=== PATIENT | female | born 1985 | race Caucasian/White ===

== ENCOUNTER 2017-01-23 10:51 | Emergency (ER) | payer BC ==
[~2017-01-23] VITALS: Ht 165.1 cm; Wt 53.0 kg
[~2017-01-23 10:51] MED LIST: ONDA4; OXYC1SOL5 PO; PREN0.01 PO
[2017-01-23 10:57] VITALS: BP 111/78; PULSE 91; RESP 16; TEMP 98.2; O2SAT 99
[2017-01-23] MEDS ORDERED: SODIUM CHLOR 0.9% 1000 ML INJ 1,000 ML IV ONE (11:11)
[2017-01-23] MEDS ORDERED: SODIUM CHLORIDE 0.9% FLUSH 10 ML FLUSH IVF PRN (11:15)
[2017-01-23] MEDS ORDERED: ONDANSETRON HCL 4 MG/2 ML VIAL IVP ONE (11:15)
[2017-01-23] MEDS ORDERED: IBUP-232 PO (11:20)
[2017-01-23] MEDS ORDERED: HYDR-3534 PO (11:20)
[2017-01-23] MEDS ORDERED: AUGM500T7 PO (11:20)
--- NOTE | 2017-01-23 11:22 | PD ---
HPI . Persistent vomiting Chief Complaint: GI Complaint Time Seen by Provider: 11:11 Travel History International Travel<30 days: No Contact w/Intl Traveler<30days: No Traveled to known affect area: No History of Present Illness HPI This patient presents with a chief complaint of vomiting. Onset was following a dental procedure yesterday. No diarrhea. No fever. No abdominal pain. Symptoms are severe. PFSH Past Medical History Arthritis: No Asthma: No Autoimmune Disease: No Blood Disorders: No Anxiety: Yes Depression: No Heart Rhythm Problems: No Cancer: No Cardiovascular Problems: No High Cholesterol: No Chemotherapy: No Chest Pain: No Congestive Heart Failure: No COPD: No Cerebrovascular Accident: No Diabetes: No Diminished Hearing: No Endocrine: No GERD: No Glaucoma: No Genitourinary: No Headaches: No Hepatitis: No Hiatal Hernia: No Hypertension: No Immune Disorder: No Kidney Stones: No Musculoskeletal: No Neurologic: Yes (MIGRAINES) Psychiatric: Yes Reproductive: Yes (Ovarian Cysts) Respiratory: No Migraines: Yes Myocardial Infarction: No Radiation Therapy: No Renal Failure: No Seizures: No Sickle Cell Disease: No Sleep Apnea: No Thyroid Disease: No Ulcer: No Influenza Vaccination: No PNEUMOCCOCAL Vaccine (Year): 2 ?: Not LMP: 01/22/2017 : 2 Para: 2 Miscarriage: 0 : 0 Ovarian Cysts: Yes Past Surgical History Abdominal Surgery: No AICD: No Appendectomy: No Arteriovenous Shunt: No Cardiac Surgery: No Cholecystectomy: No Ear Surgery: No Endocrine Surgery: No Eye Surgery: No Genitourinary Surgery: No Gynecologic Surgery: No Insulin Pump: No Joint Replacement: No Oral Surgery: No Pacemaker: No Thoracic Surgery: No Tonsillectomy: Yes Social History Alcohol Use: Yes Tobacco Use: No Substance Use: No Allergies-Medications (Allergen,Severity, Reaction): Coded Allergies: No Known Allergies (Verified , 01/23/17) Reported Meds & Prescriptions Reported Meds & Active Scripts Active Reported Ibuprofen 600 Mg Tab 600 Mg PO QID Augmentin (Amoxicillin-Clavulanate) 500-125 mg Tab 500 Mg PO BID Lortab (Hydrocodone-Acetaminophen) 7.5-325 Mg Tab 1 Tab PO Q4H PRN Review of Systems Except as stated in HPI: all other systems reviewed are Neg General / Constitutional: No: Fever, Chills Gastrointestinal: Positive: Nausea, Vomiting, No: Diarrhea, Abdominal Pain Physical Exam Narrative GENERAL: Awake and alert. She does have an emesis bag with emesis in it. SKIN: warm/dry. No jaundice. HEAD: Normocephalic. EYES: Pupils equal and round. No scleral icterus. No injection or drainage. ENT: No nasal bleeding or discharge. Mucous membranes pink and moist. NECK: Trachea midline. Full range of motion without pain.. CARDIOVASCULAR: Regular rate and rhythm. RESPIRATORY: No accessory muscle use. Clear to auscultation. Breath sounds equal bilaterally. GASTROINTESTINAL: Abdomen soft. Nontender. Bowel sounds present. Nondistended. MUSCULOSKELETAL: No obvious deformities. NEUROLOGICAL: Awake and alert. No obvious cranial nerve deficits. Motor grossly within normal limits. Normal speech. PSYCHIATRIC: Appropriate mood and affect; insight and judgment normal. Data Data Last Documented VS Vital Signs Date Time Temp Pulse Resp B/P (MAP) Pulse Ox O2 Delivery O2 Flow Rate FiO2 01/23/17 10:57 98.2 91 16 111/78 (89) 99 Orders Orders Iv Access Insert/Monitor (01/23/17 11:11) Ondansetron Inj (Zofran Inj) (01/23/17 11:15) Sodium Chlor 0.9% 1000 Ml Inj (Ns 1000 M (01/23/17 11:11) Sodium Chloride 0.9% Flush (Ns Flush) (01/23/17 11:15) Morphine Inj (Morphine Inj) (01/23/17 11:45) MDM Medical Decision Making Medical Screen Exam Complete: Yes Emergency Medical Condition: Yes Differential Diagnosis Differential diagnosis includes but is not limited to viral gastritis, food poisoning, pancreatitis, pneumonia, hepatitis, acute coronary syndrome, Narrative Course This patient presents complaining with persistent vomiting since a dental procedure yesterday. She will be treated with IV fluids and IV Zofran. Nausea and vomiting are markedly improved following Zofran. She is now complaining with dental pain. I will give her a dose of morphine before D/Cing her IV. Diagnosis Primary Impression: Vomiting Qualified Codes: R11.10 - Vomiting, unspecified Patient Instructions: Acute Nausea and Vomiting (DC), General Instructions Med/Other Pt SpecificInfo: Prescription(s) given Scripts Ondansetron (Zofran) 4 Mg Tab 4 MG PO Q6HR Y for NAUSEA OR VOMITING, #10 TAB 0 Refills Prov: Brook Joy MD 01/23/17 Disposition: 01 DISCHARGE HOME Condition: Stable Brook Joy MD Jan 23, 2017 11:22
[2017-01-23] MEDS ORDERED: MORPHINE SULFATE 4 MG/ML INJ IV ONE (11:45)
[2017-01-23] MEDS ORDERED: ZOFR4TAB PO (11:50)
[2017-01-23] MEDS ORDERED: PROM1SUP7 RECTAL (11:57)
[2017-01-23] MEDS ORDERED: PROMETHAZINE HCL 25 MG SUPP RECTAL PRN (12:00)
[2017-01-23 12:06] VITALS: RESP 18
[2017-01-23 12:37] VITALS: BP 112/68
== END 2017-01-23 12:39 | disposition home or self-care (01) ==
LOC: PHED 10:51
DX: R11.10 Vomiting, unspecified (principal); K08.89 Other specified disorders of teeth and supporting structures
CPT/HCPCS: 96361; 96374; 96375; 99284; J2270; J2405; J7030